=== PATIENT | female | born 1940 | race Two or more races ===

== ENCOUNTER 2020-05-21 18:09 | Emergency (ER) | payer MEDICARE, OTHER ==
[~2020-05-21] VITALS: Ht 167.6 cm; Wt 79.4 kg
[~2020-05-21 18:09] MED LIST: ALPR0.5T PO; ATOR10TA PO
[2020-05-21] MEDS ORDERED: ONDANSETRON HCL/PF 4 MG/2 ML VIAL ONE ×2 (18:27→22:19)
[2020-05-21] MEDS ORDERED: MORPHINE SULFATE INJ 4 MG/ML DISP.SYRIN ONE ×2 (18:27→19:28)
[2020-05-21] MEDS ORDERED: IV NS 0.9% 1,000 ML BAG IV ONE (18:30)
[2020-05-21] MEDS ORDERED: MORPHINE SULFATE INJ 2 MG/ML DISP.SYRIN IV ONE ×2 (18:30→20:00)
[2020-05-21] MEDS ORDERED: ONDANSETRON HCL/PF 4 MG/2 ML VIAL IVP ONE (18:30)
--- NOTE | 2020-05-21 18:32 | NUR ---
STEVENSON FROM HOME TO ER BED 4. AAOX4. BROUGHT ON FOR ABDOMINAL PAIN WHICH STARTED AFTER EATING EGGS COUPLE HOURS AGO. PT IS RATING HER PAIN 10/10 SHARP THROBBING. PT ALSO REPORTS SHE IS NAUSEOUS. WAS AT THE BEDSIDE FOR EVAL. ORDERS RECEIVED NOTED AND CARRIED OUT. IV LINE ESTABLISHED ON L HAND 20G, BLOOD DRAWN AND GIVEN TO EXECUTIVE RECEPTIONIST. EKG BEING DONE AT BEDSIDE BY EMT
[2020-05-21 18:37] LABS: BASOPHILS # (AUTO) 0.1 /CMM (0.0-0.2); BASOPHILS % (AUTO) 0.6 % (0.0-2.0); EOSINOPHILS % (AUTO) 0.9 % (0.0-6.0); HEMATOCRIT 37 % (33-45); LYMPHOCYTES # (AUTO) 2.1 /CMM (0.8-4.8); LYMPHOCYTES % (AUTO) 14.2 % (20.0-44.0); MEAN CORPUSCULAR HGB CONC 33 g/dl (31.0-36.0); MEAN CORPUSCULAR VOLUME 91 fL (82-100); MONOCYTES # (AUTO) 0.3 /CMM (0.1-1.30); MONOCYTES % (AUTO) 2.3 % (2.0-12.0); NEUTROPHILS # (AUTO) 12.2 /CMM (1.8-8.9); PLATELET COUNT (AUTO) 261 /CMM (150-450); RED BLOOD CELL COUNT(AUTO) 4.02 MIL/uL (4.0-5.2); WHITE BLOOD COUNT (AUTO) 14.9 K/uL (4.3-11.0)
--- NOTE | 2020-05-21 18:50 | NUR ---
PT TO CT ON [facility]
[2020-05-21 18:52] LABS: ALANINE AMINOTRANSFERASE 46 U/L (12-78); ALBUMIN 3.5 g/dL (3.4-5.0); ALKALINE PHOSPHATASE 72 U/L (46-116); ASPARTATE AMINOTRANSFERASE 69 U/L (15-37); BILIRUBIN,DIRECT 0.3 mg/dL (0.0-0.2); BILIRUBIN,TOTAL 0.5 mg/dL (0.2-1.0); CALCIUM, SERUM 9.9 mg/dL (8.5-10.1); CARBON DIOXIDE 27 mmol/L (21-32); CHLORIDE 100 mmol/L (98-107); CREATININE 1.1 mg/dL (0.6-1.3); GLUCOSE 145 mg/dL (74-106); LIPASE 12051 U/L (73-393); POTASSIUM 3.5 mmol/L (3.5-5.1); SODIUM SERUM 138 mmol/L (136-145); TOTAL PROTEIN, SERUM 7.2 g/dL (6.4-8.2); UREA NITROGEN, BLOOD 24 mg/dL (7-18)
--- NOTE | 2020-05-21 18:59 | NUR ---
ODILON ([facility]) [phone]
[2020-05-21] MEDS ORDERED: MULT-447 PO (19:20)
[2020-05-21] MEDS ORDERED: CYAN-51 PO (19:20)
[2020-05-21] MEDS ORDERED: OLME20TA23 PO (19:20)
[2020-05-21] MEDS ORDERED: SIMV10TA98 PO (19:20)
[2020-05-21] MEDS: HYDROMORPHONE 1 MG/1 ML DISP.SYRIN IV ONE ×2 (19:23→22:25)
--- NOTE | 2020-05-21 19:33 | NUR ---
covid swab collected and sent to lab
--- NOTE | 2020-05-21 19:55 | NUR ---
SPOKE WITH [facility] STAINED GLASS JOINER LILA REGARDING PT TRANSFER.
--- NOTE | 2020-05-21 20:14 | NUR ---
CIERRA LORENZO TALKING TO SAVITA LORENZO REGARDING PT.
--- NOTE | 2020-05-21 20:14 | NUR ---
CALVIN PEREZ MD
--- NOTE | 2020-05-21 20:29 | NUR ---
LAB CALLED REGARDING NEGATIVE COVID RESULT.
--- NOTE | 2020-05-21 20:43 | NUR ---
CIERRA LORENZO SPOKE TO DR. MURRAY AND ACCEPTED PT AT [facility].
--- NOTE | 2020-05-21 21:04 | NUR ---
ER MD AT [facility] TALKING TO PT AND PT DAUGHTER REGARDING HOSPITAL ADMISSION AND TRANSFER TO [facility].
--- NOTE | 2020-05-21 21:45 | NUR ---
CALLED [employer] OPERATOR REGARDING PT TRANSFER, STILL NO BED AVAILABLE AT THIS TIME.
[2020-05-21] MEDS ORDERED: HYDROMORPHONE 1 MG/1 ML DISP.SYRIN ONE (22:13)
--- NOTE | 2020-05-21 22:25 | NUR ---
pt w/ c/o severe abd pain and nause. dr geller made aware w/ an order for dilaudid 1mg iv and Zofran 4mg iv once. noted and carried out
[2020-05-21] MEDS ORDERED: ONDANSETRON HCL/PF 4 MG/2 ML VIAL IV ONE (22:30)
--- NOTE | 2020-05-21 22:54 | NUR ---
PT GOING TO [facility] NUMBER FOR REPORT IS [id number] ETA FOR TRANSPORT IS 30 MINS.
[2020-05-21 23:04] VITALS: BP 102/59
--- NOTE | 2020-05-21 23:06 | NUR ---
report given to rené at [facility]
--- NOTE | 2020-05-21 23:23 | NUR ---
-called saida daughter and made her aware of transportation. consent obtained over the phone - yard coupler at the bed side to [employer] maker the pt -report given to yard coupler
--- NOTE | 2020-05-21 23:30 | NUR ---
PT WAS PICKED UP BY [facility]IA [facility] AND TRANSFERRED TO [facility] IN STABLE CONDITION.
--- NOTE | 2020-05-21 23:31 | NUR ---
ALL BELONGINGS PICKED UP BY THE PT/ mortuary technician
== END 2020-05-21 23:32 | disposition short-term general hospital (02) ==
LOC: ER 18:14
DX: K85.90 Acute pancreatitis without necrosis or infection, unspecified (principal); F41.9 Anxiety disorder, unspecified; I11.9 Hypertensive heart disease without heart failure; E78.00 Pure hypercholesterolemia, unspecified; R91.8 Other nonspecific abnormal finding of lung field; M51.37 Other intervertebral disc degeneration, lumbosacral region; Z20.828 Contact with and (suspected) exposure to other viral communicable diseases; R94.31 Abnormal electrocardiogram [ECG] [EKG]
CPT/HCPCS: 36415; 71045; 74176; 80048; 80076; 83690; 84484; 85025; 87081; 87426; 93005; 96361; 96374; 96375; 96376; 99285; J1170; J2270 ×2; J2405 ×2; J7030; C9803